=== PATIENT | male | born 1995 ===

== ENCOUNTER → 2021-08-31 07:34 | Outpatient (CLI) | payer OTHER, SELFPAY ==
[2021-08-31 08:21] LABS: COVID19 -Nasal RAPID POSITIVE (Negative)
== END ==
PROVIDERS: Visit Provider Student in an Organized Health Care Education/Training Program
DX: U07.1 COVID-19 (principal); Z20.822 Contact with and (suspected) exposure to COVID-19
CPT/HCPCS: 87635